=== PATIENT | female | born 1960 | race Hispanic/Latino ===

== ENCOUNTER 2016-09-07 06:21 | Inpatient (IN) | payer MEDICARE ==
--- NOTE | 2016-09-05 09:27 | Anesthesia Consultation ---
Anesthesia Consult and Med Hx Date of service: 09/05/16 - Airway Anesthetic Teeth Evaluation: Good ROM Head & Neck: Adequate Mental/Hyoid Distance: Adequate Mallampati Class: Class II Intubation Access Assessment: Probably Good - Pulmonary Exam CTA: Yes - Cardiac Exam Cardiac Exam: RRR - Pre-Operative Health Status ASA Pre-Surgery Classification: ASA3 Proposed Anesthetic Plan: Epidural, Spinal Nerve Block: Adductor canal - Pulmonary Hx Smoking: Yes (STOPPED X 2 1/2 YRS-CIGARS 2-3 PER DAY) Hx Sleep Apnea: No (GATITO PRE SCREEN HIGH RISK) - Cardiovascular System Hx Hypertension: Yes (X 4 YRS) Hx Heart Murmur: Yes (CAUSES NO PROBLEMS) - Central Nervous System Hx Back Pain: Yes (UNABLE TO LAY FLAT DUE TO PAIN) Hx Psychiatric Problems: Yes (Anxiety, Depression) - Gastrointestinal Hx Ulcer: Yes - Endocrine Hx Renal Disease: No (Urinary incontinence) Hx Non-Insulin Dependent Diabetes: Yes (On Metformin, pre-diabetic) - Other Systems Hx Cancer: No Hx Obesity: Yes (BMI= 56)
[2016-09-05 09:50] LABS: Basophils % (Auto) 1.2 % (0.0-1.8); Eosinophils % (Auto) 1.6 % (0.0-4.3); Hematocrit 39.6 % (30.3-42.9); Hemoglobin 13.1 gm/dl (10.1-14.3); Mean Corpuscular HGB Conc 33 % (30-34); Mean Corpuscular Hemoglobin 31 pg (28-32); Mean Corpuscular Volume 94 fl (79-97); Platelet Count 308 K/mm3 (140-440); Red Blood Count 4.22 M/mm3 (3.65-5.03); Red Cell Distribution Width 14.1 % (13.2-15.2); White Blood Count 8.3 K/mm3 (4.5-11.0)
[2016-09-05 10:10] LABS: Alanine Aminotransferase 159 units/L (7-56); Albumin 3.9 g/dL (3.9-5); Albumin/Globulin Ratio 1.1 %; Alkaline Phosphatase 72 units/L (35-129); Anion Gap 21 mmol/L; BUN/Creatinine Ratio 23.75; Bilirubin,Total 0.4 mg/dL (0.1-1.2); Blood Urea Nitrogen 19 mg/dL (7-17); Calcium 9.1 mg/dL (8.4-10.2); Carbon Dioxide 23 mmol/L (22-30); Chloride 98.7 mmol/L (98-107); Glucose 161 mg/dL (65-100); Potassium 3.8 mmol/L (3.6-5.0); Sodium 139 mmol/L (137-145); Total Protein 7.5 g/dL (6.3-8.2)
--- NOTE | 2016-09-06 11:21 | History and Physical Report ---
History of Present Illness Date of examination: 09/06/16 Date of admission: 09/07/16 Chief complaint: Painful right knee with swelling, difficulty bearing weight, diagnosed with degenerative arthritis. Been treated symptomatically, am responding and therefore being admitted for total knee arthroplasty. Past History Past Medical History: arthritis, diabetes, hypertension, other (Increased BMI) Medications and Allergies Allergies Allergy/AdvReac Type Severity Reaction Status Date / Time acetaminophen [From Tylenol] Allergy Severe Seizure Verified 11/26/14 14:04 ibuprofen [From Motrin] Allergy Bleeding Verified 08/22/16 17:24 celecoxib [From Celebrex] AdvReac Bleeding Verified 11/26/14 14:49 Home Medications Medication Instructions Recorded Confirmed Last Taken Type Aspirin [Baby Aspirin] 81 mg PO DAILY 08/07/13 08/22/16 11/16/14 History Citalopram Hydrobromide [Celexa] 40 mg PO DAILY 08/07/13 08/22/16 11/25/14 History metFORMIN [Glucophage] 500 mg PO BID 08/07/13 08/22/16 11/25/14 History Multivitamin [Multi Vitamin Daily] 1 each PO DAILY 11/18/14 08/22/16 11/25/14 History Cyclobenzaprine [Flexeril] 10 mg PO PRN PRN 08/22/16 08/22/16 Unknown History Ipratropium/Albuterol Sulfate 1 puff INHALATION PRN PRN 08/22/16 08/22/16 Unknown History [Combivent Respimat] Losartan [Cozaar] 100 mg PO QDAY 08/22/16 08/22/16 Unknown History Pravastatin Sodium [Pravastatin] 20 mg PO DAILY 08/22/16 08/22/16 Unknown History Triamter/Hctz 37.5-25 mg 1 tab PO DAILY 08/22/16 08/22/16 Unknown History [Maxzide-25] Zolpidem [Ambien] 5 mg PO QHS PRN 08/22/16 08/22/16 Unknown History clonazePAM [ Klonopin] 0.5 mg PO BID PRN 08/22/16 08/22/16 Unknown History Active Meds: Active Medications Famotidine (Pepcid) 20 mg PO PREOP NR Stop: 09/07/16 23:59 Gabapentin (Neurontin) 600 mg PO PREOP NR Stop: 09/07/16 23:59 Cefazolin Sodium (Ancef/Sterile Water 2 Gm/20 Ml) 20 mls @ 80 mls/hr IV PREOP NR PRN Reason: Protocol Stop: 09/07/16 23:59 Sodium Chloride (Nacl 0.9% 1000 Ml) 1,000 mls @ 100 mls/hr IV DIRECT JANETTE Midazolam HCl (Versed) 2 mg IV PREOP NR Stop: 09/07/16 23:59 Review of Systems All systems: negative Exam - Constitutional Vitals: Temp Pulse Resp BP Pulse Ox 97.5 F L 68 20 150/80 09/05/16 09:00 09/05/16 09:00 09/05/16 09:00 09/05/16 09:00 General appearance: Present: no acute distress, well-nourished - EENT Eyes: Present: PERRL ENT: hearing intact, clear oral mucosa - Neck Neck: Present: supple, normal ROM - Respiratory Respiratory effort: normal Respiratory: bilateral: CTA - Cardiovascular Heart Sounds: Present: S1 & S2. Absent: rub, click - Extremities Extremities: pulses symmetrical, No edema, abnormal (Right knee with moderate swelling, no effusion with deformity 5 range of motion -5 flexion 95. Collateral ligaments are stable, tenderness both medial and lateral joint line. Pain and crepitus with patella femoral movement. Patellofemoral joint is stable. No calf pain, tenderness, quad strength grade 5.) Peripheral Pulses: within normal limits - Abdominal General gastrointestinal: Present: soft, non-tender, non-distended, normal bowel sounds Female genitourinary: Present: normal - Integumentary Integumentary: Present: clear, warm, dry - Musculoskeletal Musculoskeletal: gait normal, strength equal bilaterally - Psychiatric Psychiatric: appropriate mood/affect, intact judgment & insight - Neurologic Neurologic: CNII-XII intact, moves all extremities Results - Labs CBC & Chem 7: 09/05/16 09:00 09/05/16 09:00 Assessment and Plan - Patient Problems (1) Degenerative arthritis of knee Status: Chronic Qualifiers: Osteoarthritis type: primary Laterality: right Qualified Code(s): M17.11 - Unilateral primary osteoarthritis, right knee Plan to address problem: Totally arthroplasty right side. Procedure complications, expected outcome, recovery rehabilitation course discussed.
[~2016-09-07 06:21] MED LIST: ANCEF/STERILE WATER 2 GM/20 ML 20 ML IV NR; CLONIDINE 1,000 MCG/10 ML VIAL EP ONE; NACL 0.9% IR ONE; NEOSPORIN GU IR ONE; NEURONTIN PO NR; PEPCID PO NR; VERSED IV NR
[2016-09-07] MEDS: NACL 0.9% 1000 ML 1,000 ML IV SCH ×3 (07:15→22:34)
[2016-09-07] MEDS ORDERED: DECADRON ONE (07:44)
[2016-09-07] MEDS ORDERED: MARCAINE 0.5% 30 ML INFILTRATI ONE (07:45)
[2016-09-07] MEDS ORDERED: ADRENALIN ONE (07:46)
[2016-09-07] MEDS ORDERED: DIPRIVAN 10 MG/ML 1,000 MG/100 ML BOTTLE IV ONE (08:11)
[2016-09-07] MEDS ORDERED: KETALAR IV ONE (08:16)
[2016-09-07] MEDS ORDERED: AMBIEN PO PRN (08:36)
[2016-09-07] MEDS ORDERED: NON-FORMULARY (Ipratropium/Albuterol Sulfate [Combivent Respimat] 1 PUFF) INHALATION PRN (08:36)
[2016-09-07] MEDS ORDERED: ROBINUL ONE (08:39)
[2016-09-07] MEDS ORDERED: XYLOCAINE MPF 2% ONE ×2 (08:39)
[2016-09-07] MEDS ORDERED: ZOFRAN ONE (08:39)
[2016-09-07] MEDS ORDERED: NEO SYNEPHRINE/NS Syringe(OR USE) IV ONE (08:39)
--- NOTE | 2016-09-07 09:05 | Admit Criteria Form ---
Admission Criteria Documentation: AMBULATORY SURGERY EXCEPTION CRITERIA Ambulatory Surgery Exception Criteria ( Place 'X' for any and all applicable criteria): Surgery or procedure performed on ambulatory basis may require inpatient stay for[A] ANY ONE of the following(1)(2)(3)(4)(5)(6)(7)(8)(9): [X] I. A preoperative situation, condition, or finding that warrants inpatient stay as indicated by ANY ONE of the following: [X] a) Inpatient care needed because of severity of a disease or condition rather than the surgery (eg, severe cardiac or respiratory disease, severe infection) (15) (16 ) (17) (18) [] b) Emergent procedure (eg, angioplasty for acute ischemia)(19) [] c) Complex surgical approach or situation as indicated by ANY ONE of the following(3): [] i) Open approach needed instead of usual endoscopic, transcatheter, or other less invasive procedure [] ii) Difficult approach because of previous operation [] iii) Airway monitoring required after open neck procedures(20)(21) [] iv) Large mass requiring unusually extensive dissection [] v) Additional complicating feature requiring inpatient care (eg, drain management)(22(23): [X] d) Major surgery in a pt with high anesthetic risk as indicated by ANY ONE of the following (2)(3)(5)(7)(8): [X] i) ASA risk class III or higher (severe systemic disease impairing function) [D] [] ii) Advanced age (eg, older than 85 years)(14)(24) [] iii) Symptomatic heart failure(25) [] iv) Symptomatic asthma or COPD(8)(21) [] v) Morbid obesity with hemodynamic or respiratory problems(20)( 21)(26)(27) [] vi) Obstructive sleep apnea(20)(21) [] vii) Former premature infants who are younger than 60 weeks [] viii) High risk for severe postoperative abnormalities (eg, severe postoperative hypocalcemia after parathyroidectomy for severe hyperparathyroidism)(27)( 28) [] ix) Unstable angina(25) [] e) Drug-related risk requiring inpatient stay as indicated by ANY ONE of the following(5)(10)(14)(32)(33) [] i) Procedure requires discontinuing drugs or other therapy (eg , antiarrhythmic medication, antiseizure medication), which necessitates inpatient observation or treatment.(18)(31) [] ii) Major surgery and high risk drug use as indicated by ANY ONE of the following: [] 1) Active abuse of cocaine or similar drug [] 2) Monoamine oxidase inhibitor use [] 3) Other drug identified as posing risk [] f) Inadequate outpatient care situation as indicated by ANY ONE of the following(5)(10)(14)(32)(33) [] i) Patient lives remote from medical facility and procedure has urgent complication potential, and temporary nearby residence cannot be arranged [] ii) Patient will have postprocedure incapacitation and inadequate assistance at home, or alternative level of care cannot be arranged. [] iii) Patient will have long general anesthesia or procedure side effect resolution time, and competent person to stay with patient on first postoperative night at home or alternative level of care cannot be arranged. []iv) Other inadequate outpatient situation that cannot be handled by other means [] II. A perioperative event, condition, or finding that warrants inpatient stay as indicated by ANY ONE of the following (1)(2)(3): [] a) Inadequate physiologic recovery: cardiovascular, respiratory, or hemodynamic status not normal or near preoperative baseline(18) [] b) Hemodynamic instability [] c) Patient not alert with near normal or baseline mental status [] d) Temperature not normal or as expected and not appropriate for outpatient treatment of condition [] e) Ambulatory or appropriate activity level status not yet achieved post procedure [E](34)(35)(36) [] f) Operative site not appropriate (eg, unexpected or excessive drainage or bleeding) [] g) Postoperative effects not resolved or adequately managed (eg, significant pain or vomiting not appropriate for outpatient or next level of care)(10)(12) [] h) Complicating features requiring inpatient care as indicated by ANY ONE of the following(37): [] i) Severe complications of procedure (eg, bowel injury, airway compromise, vascular injury,severe hemorrhage) [] ii) Extensive (eg, dissection far beyond usual scope of procedure ) or prolonged (eg, 120 minutes beyond usual) surgery needed requiring inpatient postoperative care [] iii) Conversion to an open or complex procedure that requires inpatient care (eg, open vs laparoscopic cholecystectomy, abdominal vs vaginal hysterectomy)(38) [] iv) Comorbid condition or test result identified during or post procedure that requires inpatient care (7) [] v) Malignant hyperthermia(30) [] vi) Other complicating feature requiring inpatient care(22)(23) Inpatient stay may be needed until ALL of the following are present (1)(2)(3)(4) (5)(6)(10)(14)(33)(40): []a) Physiologic recovery: cardiovascular, respiratory, and hemodynamic status normal or near preoperative baseline []b) Hemodynamic stability []c) Patient alert, with near normal or baseline mental status []d) Temperature appropriate: patient afebrile or temperature appropriate for outpt treatment of condition []e) Activity level appropriate: ambulatory or appropriate activity level post procedure []f) Operative site appropriate as indicated by ALL of the following: []i) Site dry or with expected drainage []ii) Any blood noted is as expected for procedure. []g) Postoperative effects resolved or managed as indicated by ALL of the following: []i) Pain management appropriate for outpatient (or next level of) care(10) []ii) Minimal nausea and vomiting: if present, successfully treated with oral medication(12) []iii) Headache, dizziness, or drowsiness (if present) are mild. []h) Voiding status acceptable as indicated by ANY ONE of the following: []i) Voiding spontaneously []ii) No voiding but instructions given for follow-up in 6 to 8 hours []iii) Urinary catheter in place, and instructions given for follow-up []i) Complicating features requiring inpatient care manageable at a lower level of care(37) []j) Comorbid conditions manageable at a lower level of care(37) The original [facility] content created by [employer] has been revised. The portions of the content which have been revised are identified through the use of italic text or in bold, and [facility] [employer] has neither reviewed nor approved the modified material. All other unmodified content is copyright [facility]. Please see references footnoted in the original [facility] edition 2016 Admission Criteria Met: Yes
[2016-09-07] MEDS ORDERED: ePHEDrine SULFATE ONE (09:08)
[2016-09-07] MEDS ORDERED: PROVENTIL IH PRN (09:11)
[2016-09-07] MEDS ORDERED: NACL 0.9% IR ONE ×2 (09:12)
[2016-09-07] MEDS ORDERED: NEOSPORIN GU IR ONE (09:12)
[2016-09-07] MEDS ORDERED: MORPHINE ONE ×3 (09:48→13:24)
[2016-09-07] MEDS ORDERED: NON-FORMULARY (Citalopram Hydrobromide [Celexa] 40 MG) PO SCH (10:00)
[2016-09-07] MEDS ORDERED: NON-FORMULARY (Pravastatin Sodium [Pravastatin] 20 MG) PO SCH (10:00)
[2016-09-07] MEDS ORDERED: NON-FORMULARY (Multivitamin [Multi-Vitamin Daily] 1 EACH) PO SCH (10:00)
[2016-09-07] MEDS ORDERED: COZAAR PO SCH (10:00)
[2016-09-07] MEDS ORDERED: NON-FORMULARY (Losartan [Cozaar] 100 MG) PO SCH (10:00)
[2016-09-07] MEDS ORDERED: MAXZIDE-25 PO SCH (10:00)
[2016-09-07] MEDS ORDERED: DIPRIVAN 10 MG/ML IV ONE ×2 (10:01→10:20)
--- NOTE | 2016-09-07 10:28 | Procedure Note ---
Date of procedure: 09/07/16 Pre-op diagnosis: DJD right knee Post-op diagnosis: same Procedure: Right total knee arthroplasty Rafael, cemented Anesthesia: MAC, regional Surgeon: RANJANA RIVERA Estimated blood loss: minimal Pathology: list Specimen disposition: to lab Condition: stable Disposition: PACU
--- NOTE | 2016-09-07 11:40 | Operative Report ---
PREOPERATIVE DIAGNOSIS: Degenerative arthritis, right knee. POSTOPERATIVE DIAGNOSIS: Degenerative arthritis, right knee. OPERATIVE PROCEDURE: Right total knee arthroplasty, Rafael system, cemented. SURGEON: Mary Carmen Weir MD THERAPEUTIC MASSAGE TECHNICIAN: Jacqui Pan CSA ANESTHESIA: Regional block with general sedation. BLOOD LOSS: Minimal. TOURNIQUET TIME: 1 hour 15 minutes. PROCEDURE IN DETAIL: The patient was taken to surgery suite, satisfactory analgesia obtained with regional block, supplemented with general sedation. The right lower limb prepped with ChloraPrep, satisfactorily draped and after confirming the correct patient, surgical site, and procedure, tourniquet was inflated following exsanguination, pressure maintained at 300 mmHg pressure. Anterior incision was made, deepened to the thickness of skin and subcutaneous. Median parapatellar incision was made and the knee joint entered. With the intramedullary alignment system, distal femur was resected at 9 mm thickness and at 5 degree valgus. Using the #3 cutting block, anterior and posterior chamfering cuts were made. The joint capsule was elevated from the proximal tibia. Tibia delivered anteriorly to the wound. With the extramedullary alignment guide, proximal tibia was resected at 9 mm thickness to the lateral tibial plateau, resection carried out at 90 degrees to the tibial shaft. Tibial surface templated to size 3 and with the block in place, proximal tibia was osteotomized to allow seating of the tibial keel. Meniscus was debrided. PCL was preserved. The patella was then reamed to allow an inset patella, 29 mm and with the bony preparation was completed, trial fitting was carried out using the #3 femoral component, 3 tibial baseplate and 29 mm patellar trial. The knee appeared stable both in flexion and extension, range of motion, flexion 105-110 degrees, extension full. The components were removed. Wound was irrigated with pulse irrigation system to remove any debris. Bleeding points were cauterized to maintain hemostasis. A #3 tibial baseplate followed by 3 femoral component was cemented in place and this was followed by cementing in of all polyethylene patellar component size 29 and extruding cement debrided. Wound was again irrigated to remove any debris as the polymethyl methacrylate polymerized. Following this, trial reduction was again carried out using the 9 and 11 mm thick tibial spacers, 11 mm thick tibial spacer appeared giving optimal stability and range of motion. Knee stable both in flexion and extension. The trial component was then exchanged for an 11 mm thick polyethylene tibial spacer which was locked in place. Wound was then irrigated, closed in layers in the standard fashion using 0 Vicryl, 2-0 Vicryl, and margot. Sterile dressings were applied. The patient was transferred to recovery room in satisfactory condition, tolerated the procedure well, and at the completion of procedure counts were accurate. Postoperative range of motion 0-110 degrees. JOB# [id number] HANNAHN/FRANKY
--- NOTE | 2016-09-07 12:14 | Post Anesthesia Evaluation ---
- Post Anesthesia Evaluation Patient Participated: Yes Airway Patent: Yes Stable Respiratory Function: Yes Nausea/Vomiting: No Temp > 96.8F: Yes Pain Manageable: Yes Adequeate Hydration: Yes Anesthesia Complications: No Block Receding Appropriately: Yes Patient on Ventilator: No
[2016-09-07] MEDS ORDERED: ULTRAM PO PRN (13:23)
[2016-09-07] MEDS ORDERED: MORPHINE IV PRN ×2 (13:23→13:42)
[2016-09-07] MEDS: GLUCOPHAGE PO SCH (17:51)
[2016-09-07] MEDS ORDERED: ZOFRAN IV PRN (18:06)
[2016-09-07] MEDS ORDERED: D50W (25GM) IV PRN (18:06)
[2016-09-07] MEDS ORDERED: SODIUM CHLORIDE FLUSH SYRINGE 10 ML IV PRN (18:06)
[2016-09-07] MEDS ORDERED: TORADOL IV PRN ×2 (18:06→18:15)
[2016-09-07] MEDS: MORPHINE IV PRN (18:37)
[2016-09-07] MEDS: ANCEF/NS 1 GM/50 ML 1 GM/50 ML BAG IV SCH (21:15)
[2016-09-07] MEDS: ULTRAM PO PRN (22:30)
[2016-09-07] MEDS: ZOCOR PO SCH (22:31)
[2016-09-07] MEDS: COLACE PO SCH (22:31)
[2016-09-08] MEDS: ANCEF/NS 1 GM/50 ML 1 GM/50 ML BAG IV SCH (02:55)
[2016-09-08 05:45] LABS: Hematocrit 34.7 % (30.3-42.9); Hemoglobin 10.9 gm/dl (10.1-14.3)
[2016-09-08 05:58] LABS: BUN/Creatinine Ratio 15.26; Calcium 7.5 mg/dL (8.4-10.2); Chloride 100.1 mmol/L (98-107); Potassium 4.3 mmol/L (3.6-5.0)
--- NOTE | 2016-09-08 08:18 | Progress Note ---
Assessment and Plan alert orientated in Moderate pain. Chest clear, soft abdomen. Doing well after TKR. Plan DC home in am Subjective Date of service: 09/08/16 Objective Vital signs: Vital Signs - 12hr 09/07/16 09/08/16 23:31 00:01 Pulse Rate [ 88 Left] Respiratory 20 Rate Blood Pressure 122/68 [Left Arm] O2 Sat by Pulse 94 Oximetry - Labs CBC & BMP: 09/08/16 05:27 09/08/16 05:27 Labs: Abnormal lab results 09/07/16 09/07/16 09/07/16 Range/Units 11:05 17:24 22:07 Sodium (137-145) mmol/L Carbon Dioxide (22-30) mmol/L BUN (7-17) mg/dL Creatinine (0.7-1.2) mg/dL Glucose (65-100) mg/dL POC Glucose 132 H 151 H 122 H (70-105) Calcium (8.4-10.2) mg/dL 09/08/16 Range/Units 05:27 Sodium 134 L (137-145) mmol/L Carbon Dioxide 19 L (22-30) mmol/L BUN 29 H (7-17) mg/dL Creatinine 1.9 H D (0.7-1.2) mg/dL Glucose 127 H (65-100) mg/dL POC Glucose (70-105) Calcium 7.5 L D (8.4-10.2) mg/dL
--- NOTE | 2016-09-08 08:23 | XRay Report ---
Right knee 2 views. Findings: A total knee prosthesis is demonstrated in satisfactory position with no radiographic signs of complications.
[2016-09-08] MEDS: BABY ASPIRIN PO SCH (09:01)
[2016-09-08] MEDS: THERAGRAN Tab PO SCH (09:02)
[2016-09-08] MEDS: GLUCOPHAGE PO SCH (09:02)
[2016-09-08] MEDS: celeXA PO SCH (09:02)
[2016-09-08] MEDS: LOVENOX SUB-Q SCH (09:04)
[2016-09-08] MEDS: COLACE PO SCH ×2 (09:04→22:27)
[2016-09-08] MEDS ORDERED: VERSED ONE (09:38)
[2016-09-08] MEDS ORDERED: SUBLIMAZE ONE (09:39)
[2016-09-08] MEDS: ULTRAM PO PRN (09:50)
--- NOTE | 2016-09-08 14:50 | Discharge Summary ---
Providers - Providers Date of Admission: 09/07/16 06:21 Date of discharge: 09/09/16 Attending physician: RANJANA RIVERA 09/07/16 00:01 Consult to Case Management [CONS] Routine Services Needed at Discharge: Home Health Services DME Equipment Physical Therapy Notified:: LAW SECRETARY Additional Physician Instructions: Patient requests home health PT with nursing Consult to Physician [CONS] Routine Consulting Provider: JEN ROBERTS Reason For Exam: post op medical care Place consult to:: DR. ROBERTS Notified:: ANSWERING SERVICE Phone number called:: [phone] Was contact made?: Yes Time called:: 18:47 Comment:: CONSULT COMPLETED Physical Therapy Evaluation and Treat [CONS] Routine Comment: Reason For Exam: s/p RT TKA Mode of Transport?: Wheelchair Weight bearing status?: Partial wt bearing Assistive devices?: Yes If so list: Walker 09/08/16 12:58 Consult to Physician [CONS] Routine Consulting Provider: RANJANA RIVERA V Reason For Exam: medical management Place consult to:: Dr. Workman Notified:: spoke with answering service Phone number called:: [phone] Primary care physician: JEN ROBERTS Hospitalization Reason for admission: DJD knee Condition: Stable Procedures: Total knee arthroplasty ([place], Cemented) Disposition: DC/TX HOME UNDER HOME HEALTH - Discharge Diagnoses (1) Degenerative arthritis of knee Status: Chronic Qualifiers: Osteoarthritis type: primary Laterality: right Qualified Code(s): M17.11 - Unilateral primary osteoarthritis, right knee Core Measure Documentation - Palliative Care Palliative Care/ Comfort Measures: Not Applicable - Core Measures Any of the following diagnoses?: none Exam - Constitutional Vitals: Temp Pulse Resp BP Pulse Ox 97.7 F 104 H 18 111/57 97 09/08/16 12:00 09/08/16 12:00 09/08/16 12:00 09/08/16 12:00 09/08/16 12:00 Plan Activity: no driving until cleared by PCP, up only with assistance, fall precautions Weight Bearing Status: Full Weight Bearing Diet: diabetic Wound: per your surgeon's advice Durable Medical Equipment Needed Upon Discharge: Walker-Rolling, Bedside commode -elevated Follow up with: JEN ROBERTS MD [Primary Care Provider] - 7 Days RANJANA RIVERA MD [Staff Physician] - 7 Days Prescriptions: traMADol [Ultram 50 MG tab] 50 mg PO Q4HR PRN #60 tablet PRN Reason: Pain
--- NOTE | 2016-09-08 17:17 | Progress Note ---
Subjective Date of service: 09/08/16 Interval history: 1st POD after total knee arthroplasty Patient is in the bed, relatively comfortable. Pain is mostly controlled with pain meds. No nausea or vomiting. Ambulated with physical therapist. No residual neurological deficit. No anesthesia complications Objective - Constitutional Vitals: Vital Signs - 12hr 09/08/16 09/08/16 09/08/16 08:00 09:50 09:52 Temperature 98.3 F Pulse Rate [ 98 H Left] Respiratory 20 20 Rate Respiratory Rate [Right Knee] Blood Pressure 92/55 [Left Arm] O2 Sat by Pulse 94 94 Oximetry 09/08/16 09/08/16 09/08/16 10:00 10:20 10:50 Temperature Pulse Rate [ Left] Respiratory 16 20 Rate Respiratory 20 Rate [Right Knee] Blood Pressure [Left Arm] O2 Sat by Pulse Oximetry 09/08/16 12:00 Temperature 97.7 F Pulse Rate [ 104 H Left] Respiratory 18 Rate Respiratory Rate [Right Knee] Blood Pressure 111/57 [Left Arm] O2 Sat by Pulse 97 Oximetry - Labs CBC & Chem 7: 09/08/16 05:27 09/08/16 05:27 Labs: Abnormal lab results 09/07/16 09/07/16 09/08/16 Range/Units 17:24 22:07 05:27 Sodium 134 L (137-145) mmol/L Carbon Dioxide 19 L (22-30) mmol/L BUN 29 H (7-17) mg/dL Creatinine 1.9 H D (0.7-1.2) mg/dL Glucose 127 H (65-100) mg/dL POC Glucose 151 H 122 H (70-105) Calcium 7.5 L D (8.4-10.2) mg/dL
--- NOTE | 2016-09-08 21:28 | Consultation ---
History of Present Illness - Reason for Consult Consult date: 09/08/16 Medical management Requesting physician: RANJANA RIVERA - History of Present Illness S/p R TKA- doing well Past History Past Medical History: arthritis, diabetes, hypertension, other (Increased BMI) Past Surgical History: total knee replacement Social history: lives with family Family history: hypertension Medications and Allergies Allergies Allergy/AdvReac Type Severity Reaction Status Date / Time acetaminophen [From Tylenol] Allergy Severe Seizure Verified 11/26/14 14:04 ibuprofen [From Motrin] Allergy Bleeding Verified 08/22/16 17:24 celecoxib [From Celebrex] AdvReac Bleeding Verified 11/26/14 14:49 Home Medications Medication Instructions Recorded Confirmed Last Taken Type Aspirin [Baby Aspirin] 81 mg PO DAILY 08/07/13 09/07/16 08/31/16 09:00 History Citalopram Hydrobromide [Celexa] 40 mg PO DAILY 08/07/13 09/07/16 09/06/16 09: 00 History metFORMIN [Glucophage] 500 mg PO BID 08/07/13 09/07/16 09/06/16 17:00 History Multivitamin [Multi Vitamin Daily] 1 each PO DAILY 11/18/14 09/07/16 09/06/16 09 :00 History Cyclobenzaprine [Flexeril] 10 mg PO PRN PRN 08/22/16 09/07/16 09/05/16 17:00 History Ipratropium/Albuterol Sulfate 1 puff INHALATION PRN PRN 08/22/16 08/22/16 Unknown History [Combivent Respimat] Losartan [Cozaar] 100 mg PO QDAY 08/22/16 09/07/16 09/07/16 05:45 History Pravastatin Sodium [Pravastatin] 20 mg PO DAILY 08/22/16 09/07/16 09/05/16 21: 00 History Triamter/Hctz 37.5-25 mg 1 tab PO DAILY 08/22/16 09/07/16 09/07/16 05:45 History [Maxzide-25] Zolpidem [Ambien] 5 mg PO QHS PRN 08/22/16 09/07/16 09/05/16 21:00 History clonazePAM [ Klonopin] 0.5 mg PO BID PRN 08/22/16 09/07/16 09/07/16 05:45 History traMADol [Ultram 50 MG tab] 50 mg PO Q4HR PRN #60 tablet 09/07/16 Unknown Rx Active Meds: Active Medications Albuterol (Proventil) 2.5 mg IH Q4HRT PRN PRN Reason: Shortness Of Breath Aspirin (Baby Aspirin) 81 mg PO DAILY [facility] Last Admin: 09/08/16 09:01 Dose: 81 mg Celecoxib (Celebrex) 100 mg PO BID [facility] Last Admin: 09/08/16 09:03 Dose: 100 mg Citalopram Hydrobromide (Celexa) 40 mg PO DAILY [facility] Last Admin: 09/08/16 09:02 Dose: 40 mg Clonazepam (Klonopin) 0.5 mg PO BID PRN PRN Reason: Anxiety Dextrose (D50w (25gm)) 50 ml IV PRN PRN PRN Reason: Hypoglycemia Docusate Sodium (Colace) 100 mg PO BID [facility] Last Admin: 09/08/16 09:04 Dose: 100 mg Enoxaparin Sodium (Lovenox) 40 mg SUB-Q QDAY [facility] Last Admin: 09/08/16 09:04 Dose: 40 mg Sodium Chloride (Nacl 0.9% 1000 Ml) 1,000 mls @ 100 mls/hr IV DIRECT [facility] Last Admin: 09/07/16 22:34 Dose: 100 mls/hr Ketorolac Tromethamine (Toradol) 15 mg IV Q6H PRN PRN Reason: Pain, Mild (1-3) Stop: 09/12/16 18:05 Last Admin: 09/08/16 09:50 Dose: 15 mg Ketorolac Tromethamine (Toradol) 30 mg IV Q6H PRN PRN Reason: Pain, Moderate (4-6) Stop: 09/12/16 18:14 Losartan Potassium (Cozaar) 100 mg PO QDAY [facility] Morphine Sulfate (Morphine) 2 mg IV Q4H PRN PRN Reason: Pain, Moderate (4-6) Last Admin: 09/07/16 18:37 Dose: 2 mg Multivitamins (Theragran Tab) 1 each PO DAILY [facility] Last Admin: 09/08/16 09:02 Dose: 1 each Ondansetron HCl (Zofran) 4 mg IV Q8H PRN PRN Reason: Nausea And Vomiting Simvastatin (Zocor) 10 mg PO QHS [facility]ANETTE Last Admin: 09/07/16 22:31 Dose: 10 mg Sodium Chloride (Sodium Chloride Flush Syringe 10 Ml) 10 ml IV PRN PRN PRN Reason: LINE FLUSH Tramadol HCl (Ultram) 100 mg PO Q6H PRN PRN Reason: Pain, Moderate (4-6) Last Admin: 09/08/16 09:50 Dose: 100 mg Triamterene/HCTZ (Maxzide-25) 1 each PO DAILY [facility] Zolpidem Tartrate (Ambien) 5 mg PO QHS PRN PRN Reason: Sleep Review of Systems All systems: negative Musculoskeletal: arthritis (Rt Knee pain) Exam - Constitutional Vitals: Temp Pulse Resp BP Pulse Ox 97.7 F 104 H 18 111/57 98 09/08/16 12:00 09/08/16 12:00 09/08/16 12:00 09/08/16 12:00 09/08/16 20:48 General appearance: Present: no acute distress, well-nourished - EENT Eyes: Present: PERRL ENT: hearing intact, clear oral mucosa - Neck Neck: Present: supple, normal ROM - Respiratory Respiratory effort: normal Respiratory: bilateral: CTA - Cardiovascular Heart Sounds: Present: S1 & S2. Absent: rub, click - Extremities Extremities: pulses symmetrical, No edema Peripheral Pulses: within normal limits - Abdominal General gastrointestinal: Present: soft, non-tender, non-distended, normal bowel sounds Female genitourinary: Present: normal - Integumentary Integumentary: Present: clear, warm, dry - Musculoskeletal Musculoskeletal: gait normal, strength equal bilaterally - Psychiatric Psychiatric: appropriate mood/affect, intact judgment & insight - Neurologic Neurologic: CNII-XII intact, moves all extremities Results - Labs CBC & Chem 7: 09/08/16 05:27 09/08/16 05:27 Labs: Abnormal lab results 09/07/16 09/08/16 Range/Units 22:07 05:27 Sodium 134 L (137-145) mmol/L Carbon Dioxide 19 L (22-30) mmol/L BUN 29 H (7-17) mg/dL Creatinine 1.9 H D (0.7-1.2) mg/dL Glucose 127 H (65-100) mg/dL POC Glucose 122 H (70-105) Calcium 7.5 L D (8.4-10.2) mg/dL Assessment and Plan - Patient Problems (1) History of total knee arthroplasty Current Visit: Yes Status: Acute Qualifiers: Laterality: right Qualified Code(s): Z96.651 - Presence of right artificial knee joint Plan to address problem: Doing well (2) Essential hypertension Current Visit: No Status: Chronic Plan to address problem: Cont Losartan (3) T2DM (type 2 diabetes mellitus) Current Visit: Yes Status: Chronic Qualifiers: Diabetes mellitus complication status: without complication Diabetes mellitus complication detail: D Diabetic retinopathy severity: D Proliferative retinopathy type: P Diabetes mellitus macular edema: D Diabetes mellitus [employer] insulin use: D Laterality: L Chronic kidney disease stage: C Plan to address problem: Cont metformin and coverage (4) Hyperlipidemia Current Visit: Yes Status: Chronic Qualifiers: Hyperlipidemia type: mixed hyperlipidemia Qualified Code(s): E78.2 - Mixed hyperlipidemia Plan to address problem: Cont statins (5) COPD (chronic obstructive pulmonary disease) Current Visit: Yes Status: Chronic Qualifiers: COPD type: C Chronic bronchitis type: simple Emphysema type: E Qualified Code(s): J41.0 - Simple chronic bronchitis Plan to address problem: Cont combivent MDI (6) DVT prophylaxis Current Visit: Yes Status: Acute Plan to address problem: Lovenox 40 mg sq qd
[2016-09-08] MEDS: MORPHINE IV PRN (22:25)
[2016-09-08] MEDS: ZOCOR PO SCH (22:27)
[2016-09-09] MEDS: NACL 0.9% 1000 ML 1,000 ML IV SCH (05:53)
[2016-09-09] MEDS: MORPHINE IV PRN (06:55)
[2016-09-09] MEDS: BABY ASPIRIN PO SCH (10:48)
[2016-09-09] MEDS: LOVENOX SUB-Q SCH (10:49)
[2016-09-09] MEDS: THERAGRAN Tab PO SCH (10:49)
[2016-09-09] MEDS: COLACE PO SCH (10:49)
[2016-09-09] MEDS: celeXA PO SCH (10:49)
[2016-09-09] MEDS: ULTRAM PO PRN (11:18)
[2016-09-09 11:35] VITALS: BP 162/79
== END 2016-09-09 12:42 | disposition home health service (06) | DRG 469 ==
LOC: 3A 06:21 → 2B-SURG 17:57
PROVIDERS: ADMIT Orthopaedic Surgery; ATTEND Orthopaedic Surgery
PROC: 0SRC0J9 Replacement of Right Knee Joint with Synthetic Substitute, Cemented, Open Approach (ICD-10-PCS; principal; 2016-09-07)
DX: M17.11 Unilateral primary osteoarthritis, right knee (principal); N17.0 Acute kidney failure with tubular necrosis; Z68.43 Body mass index [BMI] 50.0-59.9, adult; E78.5 Hyperlipidemia, unspecified; J44.9 Chronic obstructive pulmonary disease, unspecified; I12.9 Hypertensive chronic kidney disease with stage 1 through stage 4 chronic kidney disease, or unspecified chronic kidney disease; E11.22 Type 2 diabetes mellitus with diabetic chronic kidney disease; N18.9 Chronic kidney disease, unspecified; F41.9 Anxiety disorder, unspecified; F32.9 Major depressive disorder, single episode, unspecified; Z88.6 Allergy status to analgesic agent; Z88.8 Allergy status to other drugs, medicaments and biological substances
CPT/HCPCS: 36415; 62324; 64447; 80048; 80053; 82962; 85014; 85018; 85025; 88304; 88305; 88311; 94760; A4217; C1776; J0171; J0690; J0735; J1100; J1650; J1885; J2250; J2270; J2370; J2405; J2704; J3010; J7030

== ENCOUNTER 2016-11-30 08:17 | Emergency (ER) | payer OTHER, MEDICARE ==
[2016-11-30] MEDS ORDERED: NACL 0.9% 1000 ML 1,000 ML IV ONE (09:16)
[2016-11-30] MEDS ORDERED: ZOFRAN IV ONE (09:20)
[2016-11-30] MEDS ORDERED: MORPHINE IV ONE (09:20)
[2016-11-30] MEDS ORDERED: BOOSTRIX IM ONE (09:20)
[2016-11-30 09:45] LABS: Basophils % (Auto) 0.5 % (0.0-1.8); Eosinophils % (Auto) 0.3 % (0.0-4.3); Hematocrit 34.6 % (30.3-42.9); Hemoglobin 11.4 gm/dl (10.1-14.3); Mean Corpuscular HGB Conc 33 % (30-34); Mean Corpuscular Hemoglobin 31 pg (28-32); Mean Corpuscular Volume 94 fl (79-97); Platelet Count 359 K/mm3 (140-440); Red Blood Count 3.69 M/mm3 (3.65-5.03); White Blood Count 14.8 K/mm3 (4.5-11.0)
[2016-11-30 09:54] LABS: BUN/Creatinine Ratio 19.23; Calcium 9.4 mg/dL (8.4-10.2); Chloride 99.4 mmol/L (98-107)
[2016-11-30 09:58] LABS: INR 1.01 (0.87-1.13)
[2016-11-30 09:59] LABS: Partial Thromboplastin Time 23.6 Sec. (24.2-36.6)
[2016-11-30 10:11] LABS: Alanine Aminotransferase 55 units/L (7-56); Albumin/Globulin Ratio 1.3 %; Alkaline Phosphatase 95 units/L (35-129); Total Protein 7.2 g/dL (6.3-8.2)
[2016-11-30 10:14] LABS: Bilirubin,Direct < 0.2 mg/dL (0-0.2)
--- NOTE | 2016-11-30 10:33 | Cat Scan Report ---
CT of the abdomen and pelvis without contrast. History: Abdominal pain. Findings: A small calcified granuloma is noted in the right lower lobe. A 1 cm calcification is seen in the superior aspect of the left lobe of the liver. Otherwise the liver is unremarkable. The spleen and pancreas are normal. The kidneys are normal in size and configuration with no evidence of mass or hydronephrosis. There are no pelvic masses or abnormal fluid collections. No mesenteric inflammation seen. There is no evidence of appendicitis. Previous ventral hernia surgery is noted area of the uterus and adnexal regions are unremarkable. Impression: No significant findings. Hepatic calcifications are consistent with a benign etiology, possibly granulomatous. A right lower lobe pulmonary granuloma is incidentally noted.
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
[2016-11-30] MEDS ORDERED: ZOFRAN ODT PO ONE (11:14)
[2016-11-30] MEDS ORDERED: ULTRAM PO ONE ×2 (11:15→11:21)
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
[2016-11-30 12:37] LABS: Bacteria,Urine 4+ /HPF (Negative); Bilirubin,Urine NEG (Negative); Blood,Urine NEG (Negative); Ketones,Urine NEG (Negative); Leukocyte Esterase,Urine TR (Negative); Mucus,Urine FEW /HPF; Nitrite,Urine NEG (Negative); Protein,Urine <15 mg/dL mg/dL (Negative); Urobilinogen,Urine < 2.0 mg/dL (<2.0)
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
[2016-11-30 15:56] VITALS: BP 121/68
== END 2016-11-30 16:17 | disposition home or self-care (01) ==
LOC: ED 08:17
DX: S41.112A Laceration without foreign body of left upper arm, initial encounter (principal); S27.322A Contusion of lung, bilateral, initial encounter; S33.5XXA Sprain of ligaments of lumbar spine, initial encounter; I10 Essential (primary) hypertension; E11.9 Type 2 diabetes mellitus without complications; M19.90 Unspecified osteoarthritis, unspecified site; G43.909 Migraine, unspecified, not intractable, without status migrainosus; F32.9 Major depressive disorder, single episode, unspecified; E78.00 Pure hypercholesterolemia, unspecified; F41.9 Anxiety disorder, unspecified; Z79.82 Long term (current) use of aspirin
CPT/HCPCS: 36415; 72131; 74176; 80048; 80074; 81001; 85025; 85610; 85730; 86850; 86900; 86901; 90471; 90715; Q0162

== ENCOUNTER 2017-03-25 21:20 | Emergency (ER) | payer MEDICARE ==
--- NOTE | 2017-03-25 22:47 | Emergency Department Report ---
ED Female HPI - General Chief complaint: Urogenital-Female Stated complaint: BURNING/PAIN IN URINATION Time Seen by Provider: 03/25/17 22:38 Source: patient, family Mode of arrival: Ambulatory Limitations: No Limitations - History of Present Illness Initial comments: Patient here complaining that she has painful urination 4 days. Denies any vaginal bleeding or discharge. She denies any back pain before reports pressure. Pain is 0 out of 10. Patient blood pressure is 171/81 and she does have a history of high blood pressure and she takes losartan. She denies initiate chest pain or shortness of breath. She denies any headache. Patient also has diabetes that she takes metformin. She denies any fever or chills or any nausea or vomiting. MD Complaint: dysuria Onset/Timin -: days(s) Severity scale (0 -10): 0 Consistency: intermittent Are you Now?: No Associated Symptoms: dysuria. denies: vaginal discharge, vaginal bleeding, abdominal pain, nausea/vomiting, fever/chills, headaches, loss of appetite, hematuria, rash, seizure, shortness of breath, syncope, weakness - Related Data Sexually active: No Home Medications Medication Instructions Recorded Confirmed Last Taken Aspirin [Baby Aspirin] 81 mg PO DAILY 08/07/13 11/30/16 11/29/16 metFORMIN [Glucophage] 500 mg PO BID 08/07/13 11/30/16 11/29/16 Multivitamin [Multi Vitamin Daily] 1 each PO DAILY 11/18/14 11/30/16 11/29/16 Losartan [Cozaar] 100 mg PO QDAY 08/22/16 11/30/16 11/29/16 Pravastatin Sodium [Pravastatin] 20 mg PO DAILY 08/22/16 11/30/16 11/29/16 Triamter/Hctz 37.5-25 mg 1 tab PO DAILY 08/22/16 11/30/16 11/29/16 [Maxzide-25] Zolpidem [Ambien] 5 mg PO QHS PRN 08/22/16 11/30/16 11/16/16 Previous Rx's Medication Instructions Recorded Last Taken Type traMADol [Ultram 50 MG tab] 50 mg PO Q4HR PRN #14 tablet 11/30/16 Unknown Rx traMADol [Ultram] 50 mg PO Q6HR PRN #14 tablet 11/30/16 Unknown Rx Levofloxacin [Levaquin] 750 mg PO QDAY #10 tablet 03/26/17 Unknown Rx Phenazopyridine [Pyridium] 200 mg PO TID PRN #12 tab 03/26/17 Unknown Rx Allergies Allergy/AdvReac Type Severity Reaction Status Date / Time acetaminophen [From Tylenol] Allergy Severe Seizure Verified 11/26/14 14:04 ibuprofen [From Motrin] Allergy Bleeding Verified 08/22/16 17:24 celecoxib [From Celebrex] AdvReac Bleeding Verified 11/26/14 14:49 ED Review of Systems ROS: Stated complaint: BURNING/PAIN IN URINATION Other details as noted in HPI Comment: All other systems reviewed and negative Constitutional: denies: chills, fever Respiratory: no symptoms reported Cardiovascular: denies: chest pain, palpitations, edema, syncope Gastrointestinal: denies: abdominal pain, nausea, vomiting, diarrhea, constipation, hematemesis, melena, hematochezia Genitourinary: dysuria. denies: frequency, hematuria, discharge, abnormal menses, dyspareunia Musculoskeletal: denies: back pain, arthralgia Skin: denies: rash Neurological: denies: headache, weakness, abnormal gait, vertigo ED Past Medical Hx - Past Medical History Previous Medical History?: Yes Hx Hypertension: Yes Hx Diabetes: Yes Hx Renal Disease: No (Urinary incontinence) Hx Arthritis: Yes Hx Headaches / Migraines: Yes (A MIGRAINE 2004;) Hx Psychiatric Treatment: Yes (depression) Hx HIV: No Additional medical history: high chol, anxiety - Surgical History Past Surgical History?: Yes Additional Surgical History: Left ankle repair-2007, hernia 2010 - Family History Family history: no significant - Social History Smoking Status: Never Smoker Substance Use Type: None - Medications Home Medications: Home Medications Medication Instructions Recorded Confirmed Last Taken Type Aspirin [Baby Aspirin] 81 mg PO DAILY 08/07/13 11/30/16 11/29/16 History metFORMIN [Glucophage] 500 mg PO BID 08/07/13 11/30/16 11/29/16 History Multivitamin [Multi Vitamin Daily] 1 each PO DAILY 11/18/14 11/30/16 11/29/16 History Losartan [Cozaar] 100 mg PO QDAY 08/22/16 11/30/16 11/29/16 History Pravastatin Sodium [Pravastatin] 20 mg PO DAILY 08/22/16 11/30/16 11/29/16 History Triamter/Hctz 37.5-25 mg 1 tab PO DAILY 08/22/16 11/30/16 11/29/16 History [Maxzide-25] Zolpidem [Ambien] 5 mg PO QHS PRN 08/22/16 11/30/16 11/16/16 History traMADol [Ultram 50 MG tab] 50 mg PO Q4HR PRN #14 tablet 11/30/16 Unknown Rx traMADol [Ultram] 50 mg PO Q6HR PRN #14 tablet 11/30/16 Unknown Rx Levofloxacin [Levaquin] 750 mg PO QDAY #10 tablet 03/26/17 Unknown Rx Phenazopyridine [Pyridium] 200 mg PO TID PRN #12 tab 03/26/17 Unknown Rx ED Physical Exam - General Limitations: No Limitations General appearance: alert, in no apparent distress - Head Head exam: Present: atraumatic, normocephalic, normal inspection - Eye Eye exam: Present: normal appearance, PERRL, EOMI Pupils: Present: normal accommodation - ENT ENT exam: Present: normal exam, normal orophraynx, mucous membranes moist, TM's normal bilaterally, normal external ear exam - Neck Neck exam: Present: normal inspection, full ROM. Absent: tenderness, meningismus, lymphadenopathy - Respiratory Respiratory exam: Present: normal lung sounds bilaterally. Absent: respiratory distress, chest wall tenderness - Cardiovascular Cardiovascular Exam: Present: regular rate, normal rhythm, normal heart sounds. Absent: systolic murmur, diastolic murmur, S3, S4 - GI/Abdominal GI/Abdominal exam: Present: soft, normal bowel sounds. Absent: distended, tenderness, guarding, rebound, rigid - Extremities Exam Extremities exam: Present: normal inspection, full ROM, normal capillary refill. Absent: tenderness, pedal edema, joint swelling, calf tenderness - Back Exam Back exam: Present: normal inspection, full ROM. Absent: tenderness, CVA tenderness (R), CVA tenderness (L), muscle spasm, paraspinal tenderness, vertebral tenderness, rash noted - Neurological Exam Neurological exam: Present: alert, oriented X3, normal gait, reflexes normal. Absent: motor sensory deficit - Psychiatric Psychiatric exam: Present: normal affect, normal mood - Skin Skin exam: Present: warm, dry, intact, normal color. Absent: rash ED Course Vital Signs 03/25/17 22:15 Temperature 98.4 F Pulse Rate 89 Respiratory 16 Rate Blood Pressure 171/81 O2 Sat by Pulse 95 Oximetry - Reevaluation(s) Reevaluation #1: 03/25/17 22:55 patient given pyridium 200 mg for urinary burning 03/26/17 00:12 Reevaluation #2: 03/25/17 23:56 Given Rocephin 1 g IM to treat urinary tract infection. Urinary burning subsided since Pyridium ED Medical Decision Making - Lab Data Lab Results 03/25/17 Range/Units 22:37 Urine Color Yellow (Yellow) Urine Turbidity Turbid (Clear) Urine pH 5.0 (5.0-7.0) Ur Specific Dane 1.018 (1.003-1.030) Urine Protein 100 mg/dl (Negative) mg/dL Urine Glucose (UA) Neg (Negative) mg/dL Urine Ketones Neg (Negative) mg/dL Urine Blood Lg (Negative) Urine Nitrite Neg (Negative) Urine Bilirubin Neg (Negative) Urine Urobilinogen < 2.0 (<2.0) mg/dL Ur Leukocyte Esterase Mod (Negative) Urine WBC (Auto) > 182.0 H (0.0-6.0) /HPF Urine RBC (Auto) > 182.0 (0.0-6.0) /HPF Urine Bacteria (Auto) 3+ (Negative) /HPF Urine Mucus Few /HPF Urine culture pending - Medical Decision Making ED course: Pt here with 4 days of urinary burning . She had no fever, nausea or vomiting or back pain. Asked menstrual period was 02/29/2008. denies any abdominal pain. She is able to tolerate 2 cups of apple juice in the emergency room without any difficulties. Patient was given peridium 200 mg 1 dose in the emergency room for urinary burning and Rocephin 1 g IM for acute cystitis with hematuria. Discussed with patient that she has urinary tract infection and she also has protein in her urine. His diagnosis and treatment plan with her and she voiced understanding. Patient does have a primary care physician and I discussed with her that she needs to follow-up in 3 days. Flank areas sure that she needs to increase her fluid intake and make sure she takes her blood sugar daily as infection can increased blood sugar. Diagnostic/labs: Urinalysis positive for large amount of red blood cell, positive for large amount of white cells, 3+ bacteria, large leukocyte Estrace, positive for large amount of blood.She does not have any hematuria. Urine collar was dark and urine was malodorous. Pt also positive for protein at 100. Urine culture sent and pending. Assessment/plan 1. Acute cystitis with hematuria 2. Dysuria 3. Proteinuria possible from diabetes or urinary tract infection Patient discharged home with prescription for Pyridium, Levaquin and to follow up with her primary care physician in 3 days. Critical care attestation.: If time is entered above; I have spent that time in minutes in the direct care of this critically ill patient, excluding procedure time. ED Disposition Clinical Impression: Dysuria, Acute cystitis with hematuria Proteinuria Qualifiers: Proteinuria type: unspecified Qualified Code(s): R80.9 - Proteinuria, unspecified Disposition: TO HOME OR SELFCARE Is pt being admited?: No Does the pt Need Aspirin: No Condition: Stable Instructions: Dysuria (ED), Urinary Tract Infection in Women (ED) Additional Instructions: You have protein protein in your urine so you will need to follow up with your primary care physician this could be from urinary tract infection or from your diabetes. Please take antibiotic as prescribed. Follow-up with your primary care physician in 3 days. Please increase your fluid intake as this will help to flush her bladder out Prescriptions: Levofloxacin [Levaquin] 750 mg PO QDAY #10 tablet Phenazopyridine [Pyridium] 200 mg PO TID PRN #12 tab PRN Reason: urinary burning Referrals: PRIMARY CARE, [Primary Care Provider] - 2-3 Days Forms: Accompanied Note, Work/School Release Form(ED)
[2017-03-25] MEDS ORDERED: PYRIDIUM PO ONE (22:48)
[2017-03-25 23:30] LABS: Bacteria,Urine 3+ /HPF (Negative); Bilirubin,Urine NEG (Negative); Blood,Urine LG (Negative); Ketones,Urine NEG (Negative); Leukocyte Esterase,Urine MOD (Negative); Mucus,Urine FEW /HPF; Nitrite,Urine NEG (Negative); Urobilinogen,Urine < 2.0 mg/dL (<2.0)
[2017-03-25 23:32] LABS: RBC,Urine > 182.0 /HPF (0.0-6.0); WBC,Urine > 182.0 /HPF (0.0-6.0)
[2017-03-25] MEDS ORDERED: ROCEPHIN IM STA (23:42)
[2017-03-25] MEDS ORDERED: XYLOCAINE 1% MPF 5 mL INFILTRATI ONE (23:42)
[2017-03-26 00:34] VITALS: BP 165/83
== END 2017-03-26 00:34 | disposition home or self-care (01) ==
LOC: ED 21:20
DX: N30.01 Acute cystitis with hematuria (principal); R30.0 Dysuria; R80.9 Proteinuria, unspecified; I10 Essential (primary) hypertension; E11.9 Type 2 diabetes mellitus without complications; G43.909 Migraine, unspecified, not intractable, without status migrainosus
CPT/HCPCS: 81001; 87086; 96372; 99283; J0696